=== PATIENT | male | born 1985 | race Two or more races ===

== ENCOUNTER 2018-08-15 19:10 | Inpatient (IN) | payer OTHER ==
[2018-08-15 19:23] VITALS: BMI 38.0
--- NOTE | 2018-08-15 21:54 | HP ---
CIWA Score - Admission Criteria [facility] Guidelines: Admission for Medically Managed Detox: Requires at least one of the followin. CIWA greater than 12 2. Seizures within the past 24 hours 3. Delirium tremens within the past 24 hours 4. Hallucinations within the past 24 hours 5. Acute intervention needed for co occurring medical disorder 6. Acute intervention needed for co occurring psychiatric disorder 7. Severe withdrawal that cannot be handled at a lower level of care (continued vomiting, continued diarrhea, abnormal vital signs) requiring intravenous medication and/or fluids 8. Admission ROS S - HPI Chief Complaint: SEEKING REHAB SERVICES FOR COCAINE DEPENDENCE AND ALCOHOL DEPENDENCE Allergies/Adverse Reactions: Allergies Allergy/AdvReac Type Severity Reaction Status Date / Time diphenhydramine Allergy Verified 08/15/18 21:09 [From Benadryl] shellfish derived Allergy Verified 08/15/18 21:09 History of Present Illness: 32 Y.O. MALE WITH ALCOHOL AND COCAINE DEPENDENCE HERE FOR REHAB. CLIENT STATES THAT HIS LAST DRINK WAS 3 DAYS AGO. DENIES WITHDRAWAL SX'S AT PRESENT TIME. UTOX NEG FOR DEX. STATES LAST USE 2 DAYS AGO. THIS IS HIS FIRST TIME HERE. HE IS SELF REFERRED. STATES THIS IS HIS FIRST ATTEMPT AT INPATIENT SERVICES. DENIES SIGNIFICANT CLEAN TIME. DENIES SEIZURES, AVH, SI/HI, BLACK OUTS. REPORTS HE IS HOMELESS. PMHX- ASTHMA, PSYCH- BIPOLAR MEDS- RISPERDAL HAS NOT TAKEN IN A WHILE Exam Limitations: No Limitations - Ebola screening Have you traveled outside of the country in the last 21 days: No Have you had contact with anyone from an Ebola affected area: No Have you been sick,other than usual withdrawal symptoms: No Do you have a fever: No - Review of Systems Constitutional: No Symptoms Reported EENT: reports: No Symptoms Reported Respiratory: reports: No Symptoms reported Cardiac: reports: No Symptoms Reported GI: reports: No Symptoms Reported : reports: Frequency Musculoskeletal: reports: No Symptoms Reported Integumentary: reports: No Symptoms Reported Neuro: reports: No Symptoms reported Endocrine: reports: No Symptoms Reported Hematology: reports: No Symptoms Reported Psychiatric: reports: Anxious, Depressed Other Systems: Reviewed and Negative Patient History - Patient Medical History Hx Anemia: No Hx Asthma: Yes Hx Chronic Obstructive Pulmonary Disease (COPD): No Hx Cancer: No Hx Cardiac Disorders: No Hx Congestive Heart Failure: No Hx Hypertension: No Hx Hypercholesterolemia: No Hx Pacemaker: No HX Cerebrovascular Accident: No Hx Seizures: No Hx Dementia: No Hx Diabetes: No Hx Gastrointestinal Disorders: No Hx Liver Disease: No Hx Genitourinary Disorders: No Hx Sexually Transmitted Disorders: No Hx Renal Disease (ESRD): No Hx Thyroid Disease: No Hx Human Immunodeficiency Virus (HIV): No Hx Hepatitis C: No Hx Depression: No Hx Suicide Attempt: No Hx Bipolar Disorder: Yes Hx Schizophrenia: No Other Medical History: DENIES - Patient Surgical History Past Surgical History: Yes Other Surgical History: INGUINAL HERNIA REPAIR Anesthesia Reaction: No - PPD History Previous Implant?: Yes Documented Results: Negative w/o proof Implanted On Prior [facility] Admission?: No PPD to be Administered?: Yes - Smoking Cessation Smoking history: Current every day smoker Have you smoked in the past 12 months: Yes Aproximately how many cigarettes per day: 2 Cigars Per Day: 0 Hx Chewing Tobacco Use: No Initiated information on smoking cessation: Yes 'Breaking Loose' booklet given: 08/15/18 - Substance & Tx. History Hx Alcohol Use: Yes Hx Substance Use: Yes Substance Use Type: Alcohol, Cocaine Hx Substance Use Treatment: No - Substances Abused VODKA Route: Oral Frequency: Daily Amount used: 1.5 PINT Age of first use: 20 Date of Last Use: 08/12/18 COCAINE Route: Smoking Frequency: Daily Amount used: 40 DOLLARS Age of first use: 31 Date of Last Use: 08/13/18 Family Disease History - Family Disease History Family Disease History: Other: Grandparent (HX/O DEX), Father (HX/O DEX), Mother (HX/O DEX), Brother (HX/O DEX) Admission Physical Exam S - Vital Signs Vital Signs: Vital Signs - 24 hr 08/15/18 19:20 Temperature 97.1 F L Pulse Rate 80 Respiratory 18 Rate Blood Pressure 138/73 - Physical General Appearance: Yes: Appropriately Dressed, Sweating, Anxious HEENTM: Yes: EOMI, Normal ENT Inspection, Normocephalic, Normal Voice, PONCE, Pharynx Normal Respiratory: Yes: Chest Non-Tender, Lungs Clear, Normal Breath Sounds, No Respiratory Distress, No Accessory Muscle Use Neck: Yes: No masses,lesions,Nodules, Supple, Trachea in good position Breast: Yes: Breast Exam Deferred Cardiology: Yes: Regular Rhythm, Regular Rate, S1, S2 Abdominal: Yes: Non Tender, Soft, Protuberent Genitourinary: Yes: Frequency (C/O) Back: Yes: Normal Inspection Musculoskeletal: Yes: full range of Motion, Gait Steady Extremities: Yes: Normal Capillary Refill, Normal Inspection, Normal Range of Motion, Non-Tender Neurological: Yes: Fully Oriented, Alert, Motor Strength 5/5 Integumentary: Yes: Cold (COOL), Moist Lymphatic: Yes: Within Normal Limits - Diagnostic (1) Uncomplicated alcohol dependence Current Visit: Yes Status: Chronic (2) Cocaine abuse, uncomplicated Current Visit: Yes Status: Chronic (3) Asthma Current Visit: Yes Status: Chronic Qualifiers: Asthma severity: mild Asthma persistence: intermittent Asthma complication type: unspecified Qualified Code(s): J45.20 - Mild intermittent asthma, uncomplicated (4) Nicotine dependence Current Visit: Yes Status: Chronic Qualifiers: Nicotine product type: cigarettes Substance use status: uncomplicated Qualified Code(s): F17.210 - Nicotine dependence, cigarettes, uncomplicated (5) Bipolar 1 disorder Current Visit: Yes Status: Acute (6) Homeless Current Visit: Yes Status: Acute Cleared for Admission S - Detox or Rehab Detox Regimen/Protocol: Not Applicable Claeared for Rehab Admission: Yes [facility] Breath Alcohol Content Breath Alcohol Content: 0 Urine Drug Screen - Results Drug Screen Negative: Yes Inpatient Rehab Admission - Initial Determination Are CD services needed?: Yes Free of communicable disease: Yes Not in need of hospitalization: Yes - Rehab Admission Criteria Previous failed treatment: No Poor recovery environment: Yes Comorbidities: Yes Lacks judgement: No Patient is meeting Inpatient Rehab admission criteria:: Yes
[2018-08-15] MEDS ORDERED: MENTHOL/PHENOL 1 EACH UD MM PRN (22:27)
[2018-08-15] MEDS ORDERED: LOPERAMIDE HCL 2 MG CAPSULE PO PRN (22:27)
[2018-08-15] MEDS ORDERED: ACETAMINOPHEN 325 MG TABLET (FP) PO PRN (22:27)
[2018-08-15] MEDS ORDERED: MAGNESIUM HYDROX 2400MG/30ML ORAL SUSPENSION 30 ML CUP PO PRN (22:27)
[2018-08-15] MEDS ORDERED: guaiFENesin/D-METHORPHAN HB 10 ML UNIT-DOSE CUPS PO PRN (22:27)
[2018-08-15] MEDS ORDERED: MAGNESIUM CITRATE 300 ML BOTTLE PO PRN (22:27)
[2018-08-16] MEDS: MELATONIN 5 MG TABLETS PO PRN ×2 (01:42→22:07)
[2018-08-16] MEDS: ALBUTEROL SO4 8 GM HFA INHALER IH PRN ×2 (01:45→10:41)
[2018-08-16] MEDS: hydrOXYzine PAMOATE 25 MG CAPSULE (FP) PO SCH ×3 (06:40→17:44)
--- NOTE | 2018-08-16 07:39 | PN ---
S Progress Note Note: LATE ENTRY CLIENT STATES HE IS NOT ALLERGIC TO BENADRYL ONLY THE COLORING COMPONENT HAS TAKEN THE COLORLESS BENADRYL W/O RXN VISTARIL ORDERED
[2018-08-16] MEDS: PRENATAL VITAMINS W/ FOLIC ACID TABLET (FP) PO SCH (09:45)
[2018-08-16] MEDS: NICOTINE 14 MG/24 HOURS TOPICAL PATCH TD SCH (09:46)
[2018-08-16 10:17] LABS: HEMATOCRIT 36.1 % (35.4-49); MCH 24.1 pg (25.7-33.7); MCHC 33.3 g/dl (32.0-35.9); MEAN CELL VOLUME 72.4 fl (80-96); MEAN PLT VOLUME 9.6 fl (7.5-11.1); PLATELET COUNT 216 K/MM3 (134-434); RBC 4.98 M/mm3 (4.00-5.60); RDW 17.2 % (11.9-15.9); WHITE BLOOD COUNT 9.5 K/mm3 (4.0-10.0)
[2018-08-16] MEDS: BUDESONIDE/FORMETEROL FUMARATE 160/4.5 mcg INHALER IH SCH ×2 (10:41→22:07)
[2018-08-16 10:51] LABS: ALBUMIN 3.1 g/dl (3.4-5.0); ALK PHOS 92 U/L (45-117); ANION GAP 10 MMOL/L (8-16); BILIRUBIN,TOTAL 0.2 mg/dL (0.2-1); BLOOD UREA NITROGEN 24 mg/dL (7-18); CALCIUM 7.9 mg/dL (8.5-10.1); CHLORIDE 107 mmol/L (98-107); CO2 25 mmol/L (21-32); CREATININE 1.2 mg/dL (0.55-1.3); GLUCOSE,RANDOM 91 mg/dL (74-106); POTASSIUM 4.1 mmol/L (3.5-5.1); SGOT/AST 15 U/L (15-37); SGPT/ALT 38 U/L (13-61); SODIUM 142 mmol/L (136-145); TOT PROT 6.2 g/dl (6.4-8.2)
[2018-08-16] MEDS: predniSONE 20 MG TABLET (UD) PO SCH (12:11)
[2018-08-16 13:38] LABS: URINE APPEARANCE CLEAR; URINE BILIRUBIN NEGATIVE (<2.0 mg/dL); URINE COLOR LTYELLOW; URINE GLUCOSE (UA) NEGATIVE (NEGATIVE); URINE KETONE NEGATIVE (NEGATIVE); URINE LEUK ESTERASE NEGATIVE (NEGATIVE); URINE NITRITE NEGATIVE (NEGATIVE); URINE PROTEIN NEGATIVE (NEGATIVE); URINE UROBILINOGEN NEGATIVE mg/dL (0.2-1.0)
[2018-08-16] MEDS: ALBUTEROL SO4 0.083% IH SOL 2.5 MG/3 ML VIAL.NEB. NEB PRN (17:44)
[2018-08-16] MEDS ORDERED: PT OWN MED DRAWER 7, Y5N ONE (22:06)
[2018-08-16] MEDS: THIAMINE HCL 100 MG TABLET (FP) PO SCH (22:08)
[2018-08-17] MEDS: hydrOXYzine PAMOATE 25 MG CAPSULE (FP) PO SCH ×2 (00:09→06:24)
[2018-08-17] MEDS: ALBUTEROL SO4 0.083% IH SOL 2.5 MG/3 ML VIAL.NEB. NEB PRN ×2 (06:25→18:21)
[2018-08-17] MEDS: BUDESONIDE/FORMETEROL FUMARATE 160/4.5 mcg INHALER IH SCH ×2 (10:36→21:48)
[2018-08-17] MEDS: PRENATAL VITAMINS W/ FOLIC ACID TABLET (FP) PO SCH (10:37)
[2018-08-17] MEDS: NICOTINE 14 MG/24 HOURS TOPICAL PATCH TD SCH (10:37)
[2018-08-17] MEDS: predniSONE 20 MG TABLET (UD) PO SCH (10:37)
--- NOTE | 2018-08-17 10:39 | HP ---
Psychiatrist Admission - Data Date of interview: 08/17/18 Admission source: [facility]. Self-referred Identifying data: First admission to [facility] services for this 32 y/o AA male, self -referred to [address] for rehabilitation to address alcohol + cocaine dependence co-morbid with Bipolar Disorder. 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 Claims no income. Medical History: Bronchial asthma and a history of right inguinal herniorraphy. Psychiatric History: No reported history of psychiatric hospitalizations (only a few CPEP visits). Patient states that, at age 23, he was diagnosed with Bipolar Disorder by a psychiatrist in [facility]) and placed on a low dose of risperdal (0.5 mg/hs). Was briefly tried on olanzapine (stopped due to intolerable side effects : weight gain). Has been lost to follow-up for months. No recent contact with psychiatrists. Mr Washington denies history of suicide attempts. Physical/Sexual Abuse/Trauma History: Patient denies. Additional Comment: Profile of substance abuse : Drug Screen is negative. Smoking history: Current every day smoker. Have you smoked in the past 12 months: Yes. Aproximately how many cigarettes per day: 2. Cigars Per Day: 0. Hx Chewing Tobacco Use: No. Initiated information on smoking cessation: Yes. ' Breaking Loose' booklet given: 08/15/18. - Substance & Tx. History. Hx Alcohol Use: Yes. Hx Substance Use: Yes. Substance Use Type: Alcohol, Cocaine. Hx Substance Use Treatment: No. - Substances Abused. VODKA. Route: Oral. Frequency: Daily. Amount used: 1.5 PINT. Age of first use: 20. Date of Last Use: 08/12/18. COCAINE. Route: Smoking. Frequency: Daily. Amount used: 40 DOLLARS. Age of first use: 31. Date of Last Use: 08/13/18 Vital Signs: Vital Signs - 24 hr 08/17/18 08/17/18 08/17/18 00:30 03:30 07:13 Pulse Rate 73 Respiratory 16 16 16 Rate Blood Pressure 129/75 Allergies/Adverse Reactions: Allergies Allergy/AdvReac Type Severity Reaction Status Date / Time diphenhydramine Allergy Verified 08/15/18 21:09 [From Benadryl] shellfish derived Allergy Verified 08/15/18 21:09 - Substance Abuse/Tx History Hx Alcohol Use: Yes (since age 20) Hx Substance Use: Yes Substance Use Type: Alcohol (consumes 1-2 pints of vodka daily), Cocaine (has been using cocaine since age 20 as well ; started smoking crack a year ago) Hx Substance Use Treatment: No (first call for substance abuse treatment) Mental Status Exam - Mental Status Exam Alert and Oriented to: Time, Place, Person Cognitive Function: Good Patient Appearance: Well Groomed (overweight) Mood: Hopeful, Euthymic Affect: Appropriate, Normal Range Patient Behavior: Talkative, Appropriate, Cooperative (friendly) Speech Pattern: Clear, Appropriate Voice Loudness: Normal Thought Process: Intact, Goal Oriented Thought Disorder: Not Present Hallucinations: Denies Suicidal Ideation: Denies Homicidal Ideation: Denies Insight/Judgement: Fair Sleep: Well Appetite: Good Muscle strength/Tone: Normal Gait/Station: Normal Psychiatric Findings - Problem List ([place] 1, 2,3) (1) Alcohol dependence Current Visit: Yes Status: Acute (2) Cocaine dependence Current Visit: Yes Status: Acute Comment: Toxicology is negative. Patient, however, has reported that he has not used crack for few days prior to this [facility] visit. (3) Nicotine dependence Current Visit: Yes Status: Acute Qualifiers: Nicotine product type: cigarettes Substance use status: uncomplicated Qualified Code(s): F17.210 - Nicotine dependence, cigarettes, uncomplicated (4) Bipolar disorder Current Visit: No Status: Chronic Comment: Self-report. No symptoms elicited at time of this examination. On risperdal. - Initial Treatment Plan Initial Treatment Plan: Psychoeducation. Sleep hygiene. AA meetings. Psychotherapy (supportive, group). Patient is made aware of measures currently available for relapse prevention (naltrexone, acamprosate, 12 step fellowship, psychotherapy). Motivational sessions. Risperdal 0.5 mg po hs. Resumed at patient's specific request. Side effects/benefits discussed with the patient ( specifically mentioned : galactorrhea, gynecomastia, sexual impotence, abnormal involuntary movements, cardiovascular adverse events, neuroleptic malignant syndrome, dyskinesias). Referrals for aftercare : to be discussed in Multidisciplinary rounds. Mr Washington has expressed his agreement with this plan of care. Observation.
[2018-08-17] MEDS ORDERED: PT OWN MED DRAWER 7, Y5N ONE (18:21)
[2018-08-17] MEDS: risperiDONE 0.5 MG TABLET (FP) PO SCH (21:48)
[2018-08-17] MEDS: MELATONIN 5 MG TABLETS PO PRN (21:48)
[2018-08-17] MEDS: THIAMINE HCL 100 MG TABLET (FP) PO SCH (21:50)
[2018-08-18] MEDS: BUDESONIDE/FORMETEROL FUMARATE 160/4.5 mcg INHALER IH SCH ×2 (10:17→21:52)
[2018-08-18] MEDS: PRENATAL VITAMINS W/ FOLIC ACID TABLET (FP) PO SCH (10:18)
[2018-08-18] MEDS: NICOTINE 14 MG/24 HOURS TOPICAL PATCH TD SCH (10:18)
[2018-08-18] MEDS: predniSONE 10 MG TABLET (UD) PO SCH (10:18)
[2018-08-18] MEDS: ALBUTEROL SO4 0.083% IH SOL 2.5 MG/3 ML VIAL.NEB. NEB PRN ×2 (13:55→17:39)
[2018-08-18] MEDS: THIAMINE HCL 100 MG TABLET (FP) PO SCH (21:52)
[2018-08-18] MEDS: risperiDONE 0.5 MG TABLET (FP) PO SCH (21:52)
[2018-08-18] MEDS: MELATONIN 5 MG TABLETS PO PRN (21:52)
[2018-08-19] MEDS: ALBUTEROL SO4 0.083% IH SOL 2.5 MG/3 ML VIAL.NEB. NEB PRN ×2 (07:52→17:58)
[2018-08-19] MEDS: NICOTINE 14 MG/24 HOURS TOPICAL PATCH TD SCH (10:41)
[2018-08-19] MEDS: BUDESONIDE/FORMETEROL FUMARATE 160/4.5 mcg INHALER IH SCH ×2 (10:41→22:04)
[2018-08-19] MEDS: PRENATAL VITAMINS W/ FOLIC ACID TABLET (FP) PO SCH (10:41)
[2018-08-19] MEDS: predniSONE 10 MG TABLET (UD) PO SCH (10:41)
[2018-08-19] MEDS: ALBUTEROL SO4 8 GM HFA INHALER IH PRN (17:06)
[2018-08-19] MEDS: MAG HYDROX/AL HYDROX/SIMETH 30 ML UNIT-DOSE CUP PO PRN (17:53)
[2018-08-19] MEDS: THIAMINE HCL 100 MG TABLET (FP) PO SCH (22:04)
[2018-08-19] MEDS: risperiDONE 0.5 MG TABLET (FP) PO SCH (22:04)
[2018-08-19] MEDS: MELATONIN 5 MG TABLETS PO PRN (22:06)
[2018-08-20] MEDS: ALBUTEROL SO4 8 GM HFA INHALER IH PRN ×2 (06:18→15:08)
[2018-08-20] MEDS ORDERED: PT OWN MED DRAWER 7, Y5N ONE (09:20)
[2018-08-20] MEDS ORDERED: predniSONE 5 MG TABLET (UD) PO SCH (10:00)
[2018-08-20] MEDS: PRENATAL VITAMINS W/ FOLIC ACID TABLET (FP) PO SCH (10:51)
[2018-08-20] MEDS: NICOTINE 14 MG/24 HOURS TOPICAL PATCH TD SCH (10:51)
[2018-08-20] MEDS: BUDESONIDE/FORMETEROL FUMARATE 160/4.5 mcg INHALER IH SCH ×2 (10:51→21:16)
[2018-08-20] MEDS ORDERED: COLLOIDAL OATMEAL 1 BAR EACH TP PRN (12:11)
[2018-08-20] MEDS: MINERAL OIL/PETROLAT/WATER TOPICAL CREAM 113 GM JAR TP SCH (13:00)
[2018-08-20] MEDS: THIAMINE HCL 100 MG TABLET (FP) PO SCH (21:15)
[2018-08-20] MEDS: risperiDONE 0.5 MG TABLET (FP) PO SCH (21:15)
[2018-08-20] MEDS: MELATONIN 5 MG TABLETS PO PRN (21:16)
[2018-08-20] MEDS: MAG HYDROX/AL HYDROX/SIMETH 30 ML UNIT-DOSE CUP PO PRN (22:32)
[2018-08-21] MEDS: ALBUTEROL SO4 8 GM HFA INHALER IH PRN ×2 (02:25→16:58)
[2018-08-21] MEDS ORDERED: ALBUTEROL SO4 0.083% IH SOL 2.5 MG/3 ML VIAL.NEB. NEB PRN (07:14)
[2018-08-21] MEDS: PRENATAL VITAMINS W/ FOLIC ACID TABLET (FP) PO SCH (10:15)
[2018-08-21] MEDS: NICOTINE 14 MG/24 HOURS TOPICAL PATCH TD SCH (10:16)
[2018-08-21] MEDS: BUDESONIDE/FORMETEROL FUMARATE 160/4.5 mcg INHALER IH SCH ×2 (10:16→22:00)
[2018-08-21] MEDS: MINERAL OIL/PETROLAT/WATER TOPICAL CREAM 113 GM JAR TP SCH (10:16)
[2018-08-21] MEDS: RANITIDINE HCL 150 MG TABLET (FP) PO SCH ×2 (10:17→22:00)
--- NOTE | 2018-08-21 12:52 | PN ---
[facility] Progress Note (SOAP) Subjective: c/o chest tightness , has h/o taking Prednisone , verified with pharmacy , confirmed Symbicort and Ventolin , prior rx Prednisone 07/21/2018 , prior Singulair > 12 months May 2017 ( [facility] ) states used to see pulmonary dr while in [place], has not seen one since in [place] , meant to fill rx did not go to pharmacy as he came to this facility . Pt anxious, agitated about obtaining Prednisonestates it has helped in the past with shortness of breath. . Objective: 08/21/18 12:48 wnwd no distress Resp : no accessory mm use , lungs CTA bilateral no wheezing, rales, rhonchi Assessment: 08/21/18 12:50 Asthma - poorly controlled Plan: nebulizer tx prn Prednisone 10 mg q d while at this facility , pt advised to f/up w/ PCP , discussed at length risks and benefits, verbalizes understanding of risk of OP , GIB , DM states will follow with pulmonary upon d/c from the facility . Advised pt to notify nursing for any shortness of breath Patient is in agreement w/ POC.
[2018-08-21] MEDS: predniSONE 10 MG TABLET (UD) PO SCH (14:23)
[2018-08-21] MEDS: ALBUTEROL SO4 0.083% IH SOL 2.5 MG/3 ML VIAL.NEB. NEB PRN (20:08)
[2018-08-21] MEDS ORDERED: PT OWN MED DRAWER 7, Y5N ONE ×2 (20:32→22:26)
[2018-08-21] MEDS: risperiDONE 0.5 MG TABLET (FP) PO SCH (22:00)
[2018-08-21] MEDS: THIAMINE HCL 100 MG TABLET (FP) PO SCH (22:00)
[2018-08-21] MEDS: MELATONIN 5 MG TABLETS PO PRN (22:01)
[2018-08-21] MEDS: MAG HYDROX/AL HYDROX/SIMETH 30 ML UNIT-DOSE CUP PO PRN (23:32)
[2018-08-22] MEDS: predniSONE 10 MG TABLET (UD) PO SCH (10:27)
[2018-08-22] MEDS: BUDESONIDE/FORMETEROL FUMARATE 160/4.5 mcg INHALER IH SCH ×2 (10:27→21:25)
[2018-08-22] MEDS: MINERAL OIL/PETROLAT/WATER TOPICAL CREAM 113 GM JAR TP SCH (10:27)
[2018-08-22] MEDS: RANITIDINE HCL 150 MG TABLET (FP) PO SCH ×2 (10:27→21:26)
[2018-08-22] MEDS: PRENATAL VITAMINS W/ FOLIC ACID TABLET (FP) PO SCH (10:27)
[2018-08-22] MEDS: ALBUTEROL SO4 8 GM HFA INHALER IH PRN ×2 (10:28→21:26)
[2018-08-22] MEDS: NICOTINE 14 MG/24 HOURS TOPICAL PATCH TD SCH (10:28)
[2018-08-22] MEDS ORDERED: PT OWN MED DRAWER 7, Y5N ONE ×2 (20:37→20:38)
[2018-08-22] MEDS: MAG HYDROX/AL HYDROX/SIMETH 30 ML UNIT-DOSE CUP PO PRN (21:26)
[2018-08-22] MEDS: THIAMINE HCL 100 MG TABLET (FP) PO SCH (21:26)
[2018-08-22] MEDS: risperiDONE 0.5 MG TABLET (FP) PO SCH (21:26)
[2018-08-22] MEDS: MELATONIN 5 MG TABLETS PO PRN (22:01)
[2018-08-23] MEDS: ALBUTEROL SO4 0.083% IH SOL 2.5 MG/3 ML VIAL.NEB. NEB PRN ×2 (06:32→21:27)
[2018-08-23] MEDS: BUDESONIDE/FORMETEROL FUMARATE 160/4.5 mcg INHALER IH SCH ×2 (10:12→21:23)
[2018-08-23] MEDS: RANITIDINE HCL 150 MG TABLET (FP) PO SCH ×2 (10:13→21:23)
[2018-08-23] MEDS: PRENATAL VITAMINS W/ FOLIC ACID TABLET (FP) PO SCH (10:13)
[2018-08-23] MEDS: predniSONE 10 MG TABLET (UD) PO SCH (10:13)
[2018-08-23] MEDS: NICOTINE 14 MG/24 HOURS TOPICAL PATCH TD SCH (10:13)
[2018-08-23] MEDS: MINERAL OIL/PETROLAT/WATER TOPICAL CREAM 113 GM JAR TP SCH (10:13)
[2018-08-23] MEDS ORDERED: PT OWN MED DRAWER 7, Y5N ONE (20:18)
[2018-08-23] MEDS: THIAMINE HCL 100 MG TABLET (FP) PO SCH (21:23)
[2018-08-23] MEDS: risperiDONE 0.5 MG TABLET (FP) PO SCH (21:23)
[2018-08-23] MEDS: MELATONIN 5 MG TABLETS PO PRN (21:24)
[2018-08-23] MEDS: IBUPROFEN 400 MG TABLET (FP) PO PRN (21:24)
[2018-08-23] MEDS: MAG HYDROX/AL HYDROX/SIMETH 30 ML UNIT-DOSE CUP PO PRN (21:24)
[2018-08-24] MEDS: ALBUTEROL SO4 0.083% IH SOL 2.5 MG/3 ML VIAL.NEB. NEB PRN ×2 (04:16→22:01)
[2018-08-24] MEDS: NICOTINE 14 MG/24 HOURS TOPICAL PATCH TD SCH (09:29)
[2018-08-24] MEDS: BUDESONIDE/FORMETEROL FUMARATE 160/4.5 mcg INHALER IH SCH ×2 (09:29→22:00)
[2018-08-24] MEDS: RANITIDINE HCL 150 MG TABLET (FP) PO SCH ×2 (09:30→21:59)
[2018-08-24] MEDS: PRENATAL VITAMINS W/ FOLIC ACID TABLET (FP) PO SCH (09:30)
[2018-08-24] MEDS: predniSONE 10 MG TABLET (UD) PO SCH (09:30)
[2018-08-24] MEDS: MINERAL OIL/PETROLAT/WATER TOPICAL CREAM 113 GM JAR TP SCH (09:31)
[2018-08-24] MEDS: MELATONIN 5 MG TABLETS PO PRN (21:58)
[2018-08-24] MEDS: THIAMINE HCL 100 MG TABLET (FP) PO SCH (21:58)
[2018-08-24] MEDS: IBUPROFEN 400 MG TABLET (FP) PO PRN (21:58)
[2018-08-24] MEDS: risperiDONE 0.5 MG TABLET (FP) PO SCH (21:59)
[2018-08-24] MEDS: MAG HYDROX/AL HYDROX/SIMETH 30 ML UNIT-DOSE CUP PO PRN (21:59)
[2018-08-25] MEDS: ALBUTEROL SO4 0.083% IH SOL 2.5 MG/3 ML VIAL.NEB. NEB PRN (04:48)
[2018-08-25] MEDS ORDERED: PT OWN MED DRAWER 7, Y5N ONE (09:15)
[2018-08-25] MEDS: MINERAL OIL/PETROLAT/WATER TOPICAL CREAM 113 GM JAR TP SCH (10:18)
[2018-08-25] MEDS: RANITIDINE HCL 150 MG TABLET (FP) PO SCH ×2 (10:18→22:27)
[2018-08-25] MEDS: PRENATAL VITAMINS W/ FOLIC ACID TABLET (FP) PO SCH (10:18)
[2018-08-25] MEDS: BUDESONIDE/FORMETEROL FUMARATE 160/4.5 mcg INHALER IH SCH ×2 (10:18→22:27)
[2018-08-25] MEDS: NICOTINE 14 MG/24 HOURS TOPICAL PATCH TD SCH (10:18)
[2018-08-25] MEDS: predniSONE 10 MG TABLET (UD) PO SCH (10:18)
[2018-08-25] MEDS ORDERED: COLLOIDAL OATMEAL 1 BAR EACH TP PRN (12:39)
[2018-08-25] MEDS: MAG HYDROX/AL HYDROX/SIMETH 30 ML UNIT-DOSE CUP PO PRN (18:46)
[2018-08-25] MEDS: THIAMINE HCL 100 MG TABLET (FP) PO SCH (22:26)
[2018-08-25] MEDS: IBUPROFEN 400 MG TABLET (FP) PO PRN (22:27)
[2018-08-25] MEDS: risperiDONE 0.5 MG TABLET (FP) PO SCH (22:27)
[2018-08-25] MEDS: MELATONIN 5 MG TABLETS PO PRN (22:28)
[2018-08-26] MEDS: ALBUTEROL SO4 0.083% IH SOL 2.5 MG/3 ML VIAL.NEB. NEB PRN ×2 (01:54→09:25)
[2018-08-26] MEDS: BUDESONIDE/FORMETEROL FUMARATE 160/4.5 mcg INHALER IH SCH ×2 (09:55→21:56)
[2018-08-26] MEDS: MINERAL OIL/PETROLAT/WATER TOPICAL CREAM 113 GM JAR TP SCH (09:55)
[2018-08-26] MEDS: RANITIDINE HCL 150 MG TABLET (FP) PO SCH ×2 (09:55→21:53)
[2018-08-26] MEDS: PRENATAL VITAMINS W/ FOLIC ACID TABLET (FP) PO SCH (09:55)
[2018-08-26] MEDS: predniSONE 10 MG TABLET (UD) PO SCH (09:55)
[2018-08-26] MEDS: NICOTINE 14 MG/24 HOURS TOPICAL PATCH TD SCH (09:55)
[2018-08-26] MEDS ORDERED: PT OWN MED DRAWER 7, Y5N ONE (19:23)
[2018-08-26] MEDS: IBUPROFEN 400 MG TABLET (FP) PO PRN (21:30)
[2018-08-26] MEDS: risperiDONE 0.5 MG TABLET (FP) PO SCH (21:53)
[2018-08-26] MEDS: THIAMINE HCL 100 MG TABLET (FP) PO SCH (21:53)
[2018-08-26] MEDS: MELATONIN 5 MG TABLETS PO PRN (21:55)
[2018-08-27] MEDS: ALBUTEROL SO4 0.083% IH SOL 2.5 MG/3 ML VIAL.NEB. NEB PRN ×2 (01:21→06:21)
[2018-08-27] MEDS: BUDESONIDE/FORMETEROL FUMARATE 160/4.5 mcg INHALER IH SCH ×2 (10:25→22:03)
[2018-08-27] MEDS: SODIUM CHLORIDE NASAL SPRAY 44 ML BOTTLE NS PRN (10:25)
[2018-08-27] MEDS: predniSONE 10 MG TABLET (UD) PO SCH (10:26)
[2018-08-27] MEDS: NICOTINE 14 MG/24 HOURS TOPICAL PATCH TD SCH (10:26)
[2018-08-27] MEDS: PRENATAL VITAMINS W/ FOLIC ACID TABLET (FP) PO SCH (10:26)
[2018-08-27] MEDS: RANITIDINE HCL 150 MG TABLET (FP) PO SCH ×2 (10:26→22:03)
[2018-08-27] MEDS: MINERAL OIL/PETROLAT/WATER TOPICAL CREAM 113 GM JAR TP SCH (10:27)
[2018-08-27] MEDS: ALBUTEROL SO4 8 GM HFA INHALER IH PRN ×2 (15:19→18:05)
[2018-08-27] MEDS: MELATONIN 5 MG TABLETS PO PRN (22:03)
[2018-08-27] MEDS: risperiDONE 0.5 MG TABLET (FP) PO SCH (22:03)
[2018-08-27] MEDS: THIAMINE HCL 100 MG TABLET (FP) PO SCH (22:03)
[2018-08-28] MEDS: ALBUTEROL SO4 0.083% IH SOL 2.5 MG/3 ML VIAL.NEB. NEB PRN (04:43)
[2018-08-28] MEDS: RANITIDINE HCL 150 MG TABLET (FP) PO SCH ×2 (10:07→21:32)
[2018-08-28] MEDS: BUDESONIDE/FORMETEROL FUMARATE 160/4.5 mcg INHALER IH SCH ×2 (10:07→21:34)
[2018-08-28] MEDS: PRENATAL VITAMINS W/ FOLIC ACID TABLET (FP) PO SCH (10:07)
[2018-08-28] MEDS: predniSONE 10 MG TABLET (UD) PO SCH (10:07)
[2018-08-28] MEDS: MINERAL OIL/PETROLAT/WATER TOPICAL CREAM 113 GM JAR TP SCH (10:07)
[2018-08-28] MEDS: NICOTINE 14 MG/24 HOURS TOPICAL PATCH TD SCH (10:08)
[2018-08-28] MEDS: ALBUTEROL SO4 8 GM HFA INHALER IH PRN ×2 (10:09→18:06)
[2018-08-28] MEDS ORDERED: PT OWN MED DRAWER 7, Y5N ONE ×2 (12:21→21:32)
[2018-08-28] MEDS: MELATONIN 5 MG TABLETS PO PRN (21:32)
[2018-08-28] MEDS: risperiDONE 0.5 MG TABLET (FP) PO SCH (21:32)
[2018-08-28] MEDS: THIAMINE HCL 100 MG TABLET (FP) PO SCH (21:32)
[2018-08-29] MEDS: ALBUTEROL SO4 8 GM HFA INHALER IH PRN (04:54)
[2018-08-29] MEDS: RANITIDINE HCL 150 MG TABLET (FP) PO SCH ×2 (11:02→21:42)
[2018-08-29] MEDS: predniSONE 10 MG TABLET (UD) PO SCH (11:02)
[2018-08-29] MEDS: PRENATAL VITAMINS W/ FOLIC ACID TABLET (FP) PO SCH (11:02)
[2018-08-29] MEDS: NICOTINE 14 MG/24 HOURS TOPICAL PATCH TD SCH (11:03)
[2018-08-29] MEDS: BUDESONIDE/FORMETEROL FUMARATE 160/4.5 mcg INHALER IH SCH ×2 (11:03→21:40)
[2018-08-29] MEDS: MINERAL OIL/PETROLAT/WATER TOPICAL CREAM 113 GM JAR TP SCH (11:03)
[2018-08-29] MEDS ORDERED: PT OWN MED DRAWER 7, Y5N ONE ×2 (15:57→21:03)
[2018-08-29] MEDS: risperiDONE 0.5 MG TABLET (FP) PO SCH (21:40)
[2018-08-29] MEDS: MELATONIN 5 MG TABLETS PO PRN (21:41)
[2018-08-29] MEDS: THIAMINE HCL 100 MG TABLET (FP) PO SCH (21:41)
[2018-08-30] MEDS: PRENATAL VITAMINS W/ FOLIC ACID TABLET (FP) PO SCH (10:38)
[2018-08-30] MEDS: SODIUM CHLORIDE NASAL SPRAY 44 ML BOTTLE NS PRN (10:38)
[2018-08-30] MEDS: RANITIDINE HCL 150 MG TABLET (FP) PO SCH ×2 (10:38→21:49)
[2018-08-30] MEDS: BUDESONIDE/FORMETEROL FUMARATE 160/4.5 mcg INHALER IH SCH ×2 (10:39→21:52)
[2018-08-30] MEDS: predniSONE 10 MG TABLET (UD) PO SCH (10:39)
[2018-08-30] MEDS: MINERAL OIL/PETROLAT/WATER TOPICAL CREAM 113 GM JAR TP SCH (10:40)
[2018-08-30] MEDS: NICOTINE 14 MG/24 HOURS TOPICAL PATCH TD SCH (10:40)
[2018-08-30] MEDS: ALBUTEROL SO4 8 GM HFA INHALER IH PRN (10:40)
[2018-08-30] MEDS ORDERED: PT OWN MED DRAWER 7, Y5N ONE (10:47)
[2018-08-30] MEDS: ALBUTEROL SO4 0.083% IH SOL 2.5 MG/3 ML VIAL.NEB. NEB PRN (18:02)
[2018-08-30] MEDS: THIAMINE HCL 100 MG TABLET (FP) PO SCH (21:49)
[2018-08-30] MEDS: MELATONIN 5 MG TABLETS PO PRN (21:49)
[2018-08-30] MEDS: risperiDONE 0.5 MG TABLET (FP) PO SCH (21:49)
[2018-08-31] MEDS: ALBUTEROL SO4 0.083% IH SOL 2.5 MG/3 ML VIAL.NEB. NEB PRN ×2 (04:10→10:33)
[2018-08-31] MEDS ORDERED: PT OWN MED DRAWER 7, Y5N ONE ×4 (09:05→22:13)
[2018-08-31] MEDS: PRENATAL VITAMINS W/ FOLIC ACID TABLET (FP) PO SCH (10:28)
[2018-08-31] MEDS: RANITIDINE HCL 150 MG TABLET (FP) PO SCH ×2 (10:28→22:03)
[2018-08-31] MEDS: predniSONE 10 MG TABLET (UD) PO SCH (10:28)
[2018-08-31] MEDS: SODIUM CHLORIDE NASAL SPRAY 44 ML BOTTLE NS PRN (10:29)
[2018-08-31] MEDS: NICOTINE 14 MG/24 HOURS TOPICAL PATCH TD SCH (10:29)
[2018-08-31] MEDS: MINERAL OIL/PETROLAT/WATER TOPICAL CREAM 113 GM JAR TP SCH (10:29)
[2018-08-31] MEDS: BUDESONIDE/FORMETEROL FUMARATE 160/4.5 mcg INHALER IH SCH ×2 (10:31→22:04)
[2018-08-31] MEDS: THIAMINE HCL 100 MG TABLET (FP) PO SCH (22:03)
[2018-08-31] MEDS: MELATONIN 5 MG TABLETS PO PRN (22:03)
[2018-08-31] MEDS: risperiDONE 0.5 MG TABLET (FP) PO SCH (22:03)
[2018-08-31] MEDS: MAG HYDROX/AL HYDROX/SIMETH 30 ML UNIT-DOSE CUP PO PRN (22:06)
[2018-09-01] MEDS: ALBUTEROL SO4 0.083% IH SOL 2.5 MG/3 ML VIAL.NEB. NEB PRN (05:10)
[2018-09-01] MEDS: MINERAL OIL/PETROLAT/WATER TOPICAL CREAM 113 GM JAR TP SCH (10:24)
[2018-09-01] MEDS: PRENATAL VITAMINS W/ FOLIC ACID TABLET (FP) PO SCH (10:24)
[2018-09-01] MEDS: ALBUTEROL SO4 8 GM HFA INHALER IH PRN (10:25)
[2018-09-01] MEDS: BUDESONIDE/FORMETEROL FUMARATE 160/4.5 mcg INHALER IH SCH ×2 (10:25→21:55)
[2018-09-01] MEDS: NICOTINE 14 MG/24 HOURS TOPICAL PATCH TD SCH (10:25)
[2018-09-01] MEDS: SODIUM CHLORIDE NASAL SPRAY 44 ML BOTTLE NS PRN ×2 (10:25→21:58)
[2018-09-01] MEDS: RANITIDINE HCL 150 MG TABLET (FP) PO SCH ×2 (10:25→21:56)
[2018-09-01] MEDS: predniSONE 10 MG TABLET (UD) PO SCH (10:25)
[2018-09-01] MEDS: THIAMINE HCL 100 MG TABLET (FP) PO SCH (21:56)
[2018-09-01] MEDS: risperiDONE 0.5 MG TABLET (FP) PO SCH (21:56)
[2018-09-01] MEDS: MELATONIN 5 MG TABLETS PO PRN (21:56)
[2018-09-02] MEDS: ALBUTEROL SO4 0.083% IH SOL 2.5 MG/3 ML VIAL.NEB. NEB PRN (04:26)
[2018-09-02] MEDS: PRENATAL VITAMINS W/ FOLIC ACID TABLET (FP) PO SCH (10:21)
[2018-09-02] MEDS: RANITIDINE HCL 150 MG TABLET (FP) PO SCH ×2 (10:22→21:58)
[2018-09-02] MEDS: SODIUM CHLORIDE NASAL SPRAY 44 ML BOTTLE NS PRN (10:22)
[2018-09-02] MEDS: NICOTINE 14 MG/24 HOURS TOPICAL PATCH TD SCH (10:22)
[2018-09-02] MEDS: predniSONE 10 MG TABLET (UD) PO SCH (10:22)
[2018-09-02] MEDS: BUDESONIDE/FORMETEROL FUMARATE 160/4.5 mcg INHALER IH SCH ×2 (10:22→21:59)
[2018-09-02] MEDS: MINERAL OIL/PETROLAT/WATER TOPICAL CREAM 113 GM JAR TP SCH (10:22)
[2018-09-02] MEDS: ALBUTEROL SO4 8 GM HFA INHALER IH PRN (10:23)
[2018-09-02] MEDS: THIAMINE HCL 100 MG TABLET (FP) PO SCH (21:58)
[2018-09-02] MEDS: risperiDONE 0.5 MG TABLET (FP) PO SCH (21:58)
[2018-09-02] MEDS: MELATONIN 5 MG TABLETS PO PRN (21:58)
[2018-09-03] MEDS: ALBUTEROL SO4 0.083% IH SOL 2.5 MG/3 ML VIAL.NEB. NEB PRN (04:16)
[2018-09-03] MEDS: PRENATAL VITAMINS W/ FOLIC ACID TABLET (FP) PO SCH (10:50)
[2018-09-03] MEDS: SODIUM CHLORIDE NASAL SPRAY 44 ML BOTTLE NS PRN (10:50)
[2018-09-03] MEDS: BUDESONIDE/FORMETEROL FUMARATE 160/4.5 mcg INHALER IH SCH ×2 (10:51→21:49)
[2018-09-03] MEDS: predniSONE 10 MG TABLET (UD) PO SCH (10:51)
[2018-09-03] MEDS: NICOTINE 14 MG/24 HOURS TOPICAL PATCH TD SCH (10:51)
[2018-09-03] MEDS: MINERAL OIL/PETROLAT/WATER TOPICAL CREAM 113 GM JAR TP SCH (10:51)
[2018-09-03] MEDS: RANITIDINE HCL 150 MG TABLET (FP) PO SCH ×2 (10:51→21:49)
[2018-09-03] MEDS: ALBUTEROL SO4 8 GM HFA INHALER IH PRN (10:52)
[2018-09-03] MEDS: THIAMINE HCL 100 MG TABLET (FP) PO SCH (21:47)
[2018-09-03] MEDS: risperiDONE 0.5 MG TABLET (FP) PO SCH (21:48)
[2018-09-03] MEDS: MELATONIN 5 MG TABLETS PO PRN (21:49)
[2018-09-04] MEDS: ALBUTEROL SO4 0.083% IH SOL 2.5 MG/3 ML VIAL.NEB. NEB PRN (03:19)
[2018-09-04] MEDS: SODIUM CHLORIDE NASAL SPRAY 44 ML BOTTLE NS PRN (04:39)
[2018-09-04] MEDS: predniSONE 10 MG TABLET (UD) PO SCH (10:20)
[2018-09-04] MEDS: BUDESONIDE/FORMETEROL FUMARATE 160/4.5 mcg INHALER IH SCH ×2 (10:21→22:11)
[2018-09-04] MEDS: NICOTINE 14 MG/24 HOURS TOPICAL PATCH TD SCH (10:21)
[2018-09-04] MEDS: PRENATAL VITAMINS W/ FOLIC ACID TABLET (FP) PO SCH (10:21)
[2018-09-04] MEDS: RANITIDINE HCL 150 MG TABLET (FP) PO SCH ×2 (10:21→22:11)
[2018-09-04] MEDS: MINERAL OIL/PETROLAT/WATER TOPICAL CREAM 113 GM JAR TP SCH (10:21)
[2018-09-04] MEDS: NICOTINE POLACRILEX 2 MG GUM BC PRN ×2 (10:22→22:10)
[2018-09-04] MEDS: risperiDONE 0.5 MG TABLET (FP) PO SCH (22:07)
[2018-09-04] MEDS: MELATONIN 5 MG TABLETS PO PRN (22:07)
[2018-09-04] MEDS: THIAMINE HCL 100 MG TABLET (FP) PO SCH (22:11)
[2018-09-04] MEDS: ALBUTEROL SO4 8 GM HFA INHALER IH PRN (22:11)
[2018-09-05] MEDS ORDERED: PT OWN MED DRAWER 7, Y5N ONE ×4 (09:23→20:08)
[2018-09-05] MEDS: PRENATAL VITAMINS W/ FOLIC ACID TABLET (FP) PO SCH (09:42)
[2018-09-05] MEDS: MINERAL OIL/PETROLAT/WATER TOPICAL CREAM 113 GM JAR TP SCH (09:42)
[2018-09-05] MEDS: predniSONE 10 MG TABLET (UD) PO SCH (09:42)
[2018-09-05] MEDS: RANITIDINE HCL 150 MG TABLET (FP) PO SCH ×2 (09:42→21:41)
[2018-09-05] MEDS: BUDESONIDE/FORMETEROL FUMARATE 160/4.5 mcg INHALER IH SCH ×2 (09:42→21:41)
[2018-09-05] MEDS: NICOTINE 14 MG/24 HOURS TOPICAL PATCH TD SCH (09:43)
[2018-09-05] MEDS: ALBUTEROL SO4 0.083% IH SOL 2.5 MG/3 ML VIAL.NEB. NEB PRN (09:45)
[2018-09-05] MEDS: ALBUTEROL SO4 8 GM HFA INHALER IH PRN (17:27)
[2018-09-05] MEDS: NICOTINE POLACRILEX 2 MG GUM BC PRN ×2 (17:27→21:43)
[2018-09-05] MEDS: SODIUM CHLORIDE NASAL SPRAY 44 ML BOTTLE NS PRN (17:27)
[2018-09-05] MEDS: risperiDONE 0.5 MG TABLET (FP) PO SCH (21:40)
[2018-09-05] MEDS: THIAMINE HCL 100 MG TABLET (FP) PO SCH (21:41)
[2018-09-05] MEDS: MELATONIN 5 MG TABLETS PO PRN (21:42)
[2018-09-06] MEDS: ALBUTEROL SO4 0.083% IH SOL 2.5 MG/3 ML VIAL.NEB. NEB PRN (04:59)
[2018-09-06] MEDS: BUDESONIDE/FORMETEROL FUMARATE 160/4.5 mcg INHALER IH SCH ×2 (10:43→21:31)
[2018-09-06] MEDS: RANITIDINE HCL 150 MG TABLET (FP) PO SCH ×2 (10:44→21:29)
[2018-09-06] MEDS: predniSONE 10 MG TABLET (UD) PO SCH (10:44)
[2018-09-06] MEDS: MINERAL OIL/PETROLAT/WATER TOPICAL CREAM 113 GM JAR TP SCH (10:44)
[2018-09-06] MEDS: NICOTINE 14 MG/24 HOURS TOPICAL PATCH TD SCH (10:44)
[2018-09-06] MEDS: PRENATAL VITAMINS W/ FOLIC ACID TABLET (FP) PO SCH (10:44)
[2018-09-06] MEDS: NICOTINE POLACRILEX 2 MG GUM BC PRN ×3 (10:47→21:47)
[2018-09-06] MEDS ORDERED: PT OWN MED DRAWER 7, Y5N ONE (10:49)
--- NOTE | 2018-09-06 11:05 | PN ---
[facility] Progress Note Note: PATIENT C/O URINATING A LOT AT NIGHT. PATIENT DENIES DYSURIA, URGENCY. PATIENT CURRENTLY ON PREDNISONE AND SYMBICORT FOR ASTHMA AND REPORTS H/O PRE-DIABETES. WILL ORDER FASTING GLUCOSE AND CONTINUE TO MONITOR CLINICALLY. Vital Signs Temperature 97.3 F L 09/06/18 07:03 Pulse Rate 66 09/06/18 07:03 Respiratory Rate 18 09/06/18 07:03 Blood Pressure 124/81 09/06/18 07:03 O2 Sat by Pulse Oximetry (%)
[2018-09-06] MEDS: ALBUTEROL SO4 8 GM HFA INHALER IH PRN (18:29)
[2018-09-06] MEDS: THIAMINE HCL 100 MG TABLET (FP) PO SCH (21:29)
[2018-09-06] MEDS: MELATONIN 5 MG TABLETS PO PRN (21:29)
[2018-09-06] MEDS: risperiDONE 0.5 MG TABLET (FP) PO SCH (21:29)
[2018-09-07] MEDS: ALBUTEROL SO4 8 GM HFA INHALER IH PRN ×2 (07:20→17:41)
[2018-09-07] MEDS ORDERED: PT OWN MED DRAWER 7, Y5N ONE ×3 (08:56→22:07)
[2018-09-07] MEDS: predniSONE 10 MG TABLET (UD) PO SCH (10:23)
[2018-09-07] MEDS: PRENATAL VITAMINS W/ FOLIC ACID TABLET (FP) PO SCH (10:23)
[2018-09-07] MEDS: RANITIDINE HCL 150 MG TABLET (FP) PO SCH ×2 (10:23→22:00)
[2018-09-07] MEDS: MINERAL OIL/PETROLAT/WATER TOPICAL CREAM 113 GM JAR TP SCH (10:25)
[2018-09-07] MEDS: BUDESONIDE/FORMETEROL FUMARATE 160/4.5 mcg INHALER IH SCH ×2 (10:25→21:59)
[2018-09-07] MEDS: NICOTINE 14 MG/24 HOURS TOPICAL PATCH TD SCH (10:26)
[2018-09-07] MEDS: NICOTINE POLACRILEX 2 MG GUM BC PRN ×2 (17:42→21:59)
[2018-09-07] MEDS: THIAMINE HCL 100 MG TABLET (FP) PO SCH (21:58)
[2018-09-07] MEDS: MELATONIN 5 MG TABLETS PO PRN (21:58)
[2018-09-07] MEDS: risperiDONE 0.5 MG TABLET (FP) PO SCH (21:58)
[2018-09-07] MEDS: SODIUM CHLORIDE NASAL SPRAY 44 ML BOTTLE NS PRN (22:08)
[2018-09-08] MEDS: RANITIDINE HCL 150 MG TABLET (FP) PO SCH ×2 (11:31→22:04)
[2018-09-08] MEDS: PRENATAL VITAMINS W/ FOLIC ACID TABLET (FP) PO SCH (11:31)
[2018-09-08] MEDS: predniSONE 10 MG TABLET (UD) PO SCH (11:32)
[2018-09-08] MEDS: NICOTINE 14 MG/24 HOURS TOPICAL PATCH TD SCH (11:33)
[2018-09-08] MEDS: BUDESONIDE/FORMETEROL FUMARATE 160/4.5 mcg INHALER IH SCH ×2 (11:33→22:14)
[2018-09-08] MEDS: NICOTINE POLACRILEX 2 MG GUM BC PRN ×2 (11:35→18:51)
[2018-09-08] MEDS: SODIUM CHLORIDE NASAL SPRAY 44 ML BOTTLE NS PRN (11:35)
[2018-09-08] MEDS ORDERED: PT OWN MED DRAWER 7, Y5N ONE ×3 (11:35→19:54)
[2018-09-08] MEDS: ALBUTEROL SO4 8 GM HFA INHALER IH PRN (11:36)
[2018-09-08] MEDS: MINERAL OIL/PETROLAT/WATER TOPICAL CREAM 113 GM JAR TP SCH (11:40)
[2018-09-08] MEDS: risperiDONE 0.5 MG TABLET (FP) PO SCH (22:04)
[2018-09-08] MEDS: THIAMINE HCL 100 MG TABLET (FP) PO SCH (22:04)
[2018-09-08] MEDS: MELATONIN 5 MG TABLETS PO PRN (22:05)
[2018-09-09] MEDS: ALBUTEROL SO4 8 GM HFA INHALER IH PRN ×2 (07:02→21:34)
[2018-09-09] MEDS ORDERED: PT OWN MED DRAWER 7, Y5N ONE ×3 (09:02→21:35)
[2018-09-09] MEDS: BUDESONIDE/FORMETEROL FUMARATE 160/4.5 mcg INHALER IH SCH ×2 (10:18→21:33)
[2018-09-09] MEDS: PRENATAL VITAMINS W/ FOLIC ACID TABLET (FP) PO SCH (10:18)
[2018-09-09] MEDS: NICOTINE 14 MG/24 HOURS TOPICAL PATCH TD SCH (10:19)
[2018-09-09] MEDS: predniSONE 10 MG TABLET (UD) PO SCH (10:19)
[2018-09-09] MEDS: RANITIDINE HCL 150 MG TABLET (FP) PO SCH ×2 (10:19→21:32)
[2018-09-09] MEDS: MINERAL OIL/PETROLAT/WATER TOPICAL CREAM 113 GM JAR TP SCH (10:20)
[2018-09-09] MEDS: NICOTINE POLACRILEX 2 MG GUM BC PRN (10:21)
[2018-09-09] MEDS: risperiDONE 0.5 MG TABLET (FP) PO SCH (21:32)
[2018-09-09] MEDS: THIAMINE HCL 100 MG TABLET (FP) PO SCH (21:32)
[2018-09-09] MEDS: MELATONIN 5 MG TABLETS PO PRN (21:33)
[2018-09-09] MEDS: SODIUM CHLORIDE NASAL SPRAY 44 ML BOTTLE NS PRN (21:35)
--- NOTE | 2018-09-10 09:22 | PN ---
Psychiatric Progress Note Vital Signs: Vital Signs Period Temp Pulse Resp BP Sys/C[place]ez Pulse Ox Last 24 Hr 97.5 F 61 18-20 123/84 Date of Session: 09/13/18 Chief Complaint:: Discharge Note HPI: Patient addressing Alcohol and Cocaine Dependence comorbid with Nicotine Dependence and Bipolar Disorder. ROS: Asthma was medically managed Current Medications: Active Medications Generic Name Dose Route Start Last Admin Trade Name Freq PRN Reason Stop Dose Admin Acetaminophen 650 mg 08/15/18 22:27 Tylenol - PO Q4H PRN FEVER Al Hydroxide/Mg Hydroxide 30 ml 08/15/18 22:27 08/31/18 22:06 Mylanta Oral Suspension - PO 30 ml Q6H PRN Administration DYSPEPSIA Albuterol Sulfate 2 puff 08/20/18 12:13 09/09/18 21:34 Ventolin Hfa Inhaler - IH 2 inhaler Q4H PRN Administration ASTHMA Budesonide/Formoterol Fumarate 1 puff 08/16/18 10:00 09/09/18 21:33 Symbicort 160/4.5mcg - IH Not Given BID CHINYERE Colloidal Oatmeal 1 applic 08/25/18 12:39 08/25/18 14:09 Aveeno Soap - TP 1 applic DAILY PRN Administration HYGEINE Eucalyptus/Menthol/Phenol/Sorbitol 1 each 08/15/18 22:27 Cepastat Lozenge - MM Q4H PRN SORE THROAT Guaifenesin 10 ml 08/15/18 22:27 Robitussin Dm - PO Q6H PRN COUGH Ibuprofen 400 mg 08/15/18 22:27 08/26/18 21:30 Motrin - PO 400 mg Q6H PRN Administration Pain level 4-6 Loperamide HCl 4 mg 08/15/18 22:27 Imodium - PO Q6H PRN DIARRHEA Magnesium Citrate 300 ml 08/15/18 22:27 Citroma - PO Q48H PRN CONSTIPATION Magnesium Hydroxide 30 ml 08/15/18 22:27 Milk Of Magnesia - PO DAILY PRN CONSTIPATION Melatonin 10 mg 08/27/18 14:59 09/09/18 21:33 Melatonin PO 10 mg HS PRN Administration INSOMNIA Multi-Ingredient Lotion 1 applic 08/20/18 12:15 09/09/18 10:20 Eucerin (Small Jar) - TP 1 applic DAILY CHINYERE Administration Nicotine 14 mg 08/16/18 10:00 09/09/18 10:19 Nicoderm Patch - TD Not Given DAILY CHINYERE Nicotine Polacrilex 2 mg 08/15/18 22:27 09/09/18 10:21 Nicorette Gum - BC 2 mg Q2H PRN Administration NICOTINE REPLACEMENT RX Prednisone 10 mg 08/21/18 13:00 09/09/18 10:19 Deltasone - PO 10 mg DAILY CHINYERE Administration Multivit/Folic Acid/Iron 1 tab 08/16/18 10:00 09/09/18 10:18 Vitamins ([facility]) - PO 1 tab DAILY CHINYERE Administration Ranitidine HCl 150 mg 08/21/18 10:00 09/09/18 21:32 Zantac - PO 150 mg BID CHINYERE Administration Risperidone 0.5 mg 08/17/18 22:00 09/09/18 21:32 Risperdal - PO 0.5 mg HS CHINYERE Administration Sodium Chloride 2 spray 08/26/18 13:46 09/09/18 21:35 [place] Nasal [place] - NS 2 spray BID PRN Administration NASAL CONGESTION Thiamine HCl 100 mg 08/16/18 22:00 09/09/18 21:32 Vitamin B1 - PO 100 mg HS CHINYERE Administration Current Side Effect: No Lab tests ordered: Yes Lab tests reviewed: Yes Provider note:: Patient will complete this program on 09/14/18. He has met his treatment goals and will continue to address his issues in terminal manager residential treatment at [facility] at [address] [place] [address]. Told entry writer that from his participation in this program, he has learned the tools that would enable him to stat clean. He responded well to Risperdal 0.5 mg po HS. Script for 30 days supply of that medication is electronicaly transmitted to [facility] at [address] [place] [address]. He is stable for discharge today Total face to face time:: 35 Mental Status Exam - Mental Status Exam Alert and Oriented to: Time, Place, Person Cognitive Function: Fair Patient Appearance: Well Groomed Mood: Hopeful, Irritable Affect: Appropriate Patient Behavior: Cooperative Speech Pattern: Clear Voice Loudness: Normal Thought Process: Intact, Goal Oriented Thought Disorder: Not Present Hallucinations: Denies Suicidal Ideation: Denies Insight/Judgement: Fair Sleep: Fair Appetite: Good Muscle strength/Tone: Normal Gait/Station: Normal Psychiatric Treatment Plan - Problem List (1) Alcohol dependence Current Visit: Yes (2) Cocaine dependence Current Visit: Yes Comment: Toxicology is negative. Patient, however, has reported that he has not used crack for few days prior to this [facility] visit. (3) Nicotine dependence Current Visit: Yes Qualifiers: Nicotine product type: cigarettes Substance use status: uncomplicated Qualified Code(s): F17.210 - Nicotine dependence, cigarettes, uncomplicated (4) Bipolar 1 disorder Current Visit: Yes (5) Asthma Current Visit: Yes Qualifiers: Asthma severity: mild Asthma persistence: intermittent Asthma complication type: unspecified Qualified Code(s): J45.20 - Mild intermittent asthma, uncomplicated Initial treatment plan: Patient is discharged today and referred to [facility] for terminal manager residential treatment
[2018-09-10] MEDS ORDERED: PT OWN MED DRAWER 7, Y5N ONE ×4 (09:33→22:08)
[2018-09-10] MEDS: PRENATAL VITAMINS W/ FOLIC ACID TABLET (FP) PO SCH (10:30)
[2018-09-10] MEDS: predniSONE 10 MG TABLET (UD) PO SCH (10:30)
[2018-09-10] MEDS: MINERAL OIL/PETROLAT/WATER TOPICAL CREAM 113 GM JAR TP SCH (10:30)
[2018-09-10] MEDS: BUDESONIDE/FORMETEROL FUMARATE 160/4.5 mcg INHALER IH SCH ×2 (10:30→22:02)
[2018-09-10] MEDS: RANITIDINE HCL 150 MG TABLET (FP) PO SCH ×2 (10:30→21:34)
[2018-09-10] MEDS: SODIUM CHLORIDE NASAL SPRAY 44 ML BOTTLE NS PRN ×2 (10:33→21:37)
[2018-09-10] MEDS: ALBUTEROL SO4 8 GM HFA INHALER IH PRN (10:33)
[2018-09-10] MEDS: NICOTINE 14 MG/24 HOURS TOPICAL PATCH TD SCH (10:57)
[2018-09-10] MEDS: risperiDONE 0.5 MG TABLET (FP) PO SCH (21:34)
[2018-09-10] MEDS: THIAMINE HCL 100 MG TABLET (FP) PO SCH (21:34)
[2018-09-10] MEDS: MELATONIN 5 MG TABLETS PO PRN (21:34)
[2018-09-10] MEDS: NICOTINE POLACRILEX 2 MG GUM BC PRN (21:37)
[2018-09-11] MEDS: ALBUTEROL SO4 8 GM HFA INHALER IH PRN ×3 (02:01→17:56)
[2018-09-11] MEDS: BUDESONIDE/FORMETEROL FUMARATE 160/4.5 mcg INHALER IH SCH ×2 (10:00→21:41)
[2018-09-11] MEDS: PRENATAL VITAMINS W/ FOLIC ACID TABLET (FP) PO SCH (10:00)
[2018-09-11] MEDS: RANITIDINE HCL 150 MG TABLET (FP) PO SCH ×2 (10:00→21:39)
[2018-09-11] MEDS: MINERAL OIL/PETROLAT/WATER TOPICAL CREAM 113 GM JAR TP SCH (10:00)
[2018-09-11] MEDS: NICOTINE 14 MG/24 HOURS TOPICAL PATCH TD SCH (10:00)
[2018-09-11] MEDS: predniSONE 10 MG TABLET (UD) PO SCH (10:00)
[2018-09-11] MEDS: NICOTINE POLACRILEX 2 MG GUM BC PRN ×3 (10:02→17:55)
[2018-09-11] MEDS: THIAMINE HCL 100 MG TABLET (FP) PO SCH (21:39)
[2018-09-11] MEDS: MELATONIN 5 MG TABLETS PO PRN (21:39)
[2018-09-11] MEDS: risperiDONE 0.5 MG TABLET (FP) PO SCH (21:39)
[2018-09-11] MEDS ORDERED: PT OWN MED DRAWER 7, Y5N ONE (21:40)
[2018-09-11] MEDS: SODIUM CHLORIDE NASAL SPRAY 44 ML BOTTLE NS PRN (21:40)
[2018-09-12] MEDS: predniSONE 10 MG TABLET (UD) PO SCH (10:25)
[2018-09-12] MEDS: PRENATAL VITAMINS W/ FOLIC ACID TABLET (FP) PO SCH (10:25)
[2018-09-12] MEDS: RANITIDINE HCL 150 MG TABLET (FP) PO SCH ×2 (10:25→21:32)
[2018-09-12] MEDS: MINERAL OIL/PETROLAT/WATER TOPICAL CREAM 113 GM JAR TP SCH (10:26)
[2018-09-12] MEDS: NICOTINE 14 MG/24 HOURS TOPICAL PATCH TD SCH (10:26)
[2018-09-12] MEDS: BUDESONIDE/FORMETEROL FUMARATE 160/4.5 mcg INHALER IH SCH ×2 (10:26→21:33)
[2018-09-12] MEDS: SODIUM CHLORIDE NASAL SPRAY 44 ML BOTTLE NS PRN ×2 (10:26→21:33)
[2018-09-12] MEDS: NICOTINE POLACRILEX 2 MG GUM BC PRN ×3 (10:26→17:41)
[2018-09-12] MEDS ORDERED: PT OWN MED DRAWER 7, Y5N ONE ×2 (10:39→19:40)
[2018-09-12] MEDS: ALBUTEROL SO4 8 GM HFA INHALER IH PRN ×2 (17:42→21:32)
[2018-09-12] MEDS: risperiDONE 0.5 MG TABLET (FP) PO SCH (21:32)
[2018-09-12] MEDS: MELATONIN 5 MG TABLETS PO PRN (21:32)
[2018-09-12] MEDS: THIAMINE HCL 100 MG TABLET (FP) PO SCH (21:32)
[2018-09-13] MEDS: NICOTINE POLACRILEX 2 MG GUM BC PRN (07:11)
[2018-09-13 07:50] VITALS: BP 126/86; PULSE 67; TEMP 97.3
[2018-09-13] MEDS ORDERED: PT OWN MED DRAWER 7, Y5N ONE (07:57)
--- NOTE | 2018-09-13 08:25 | PN ---
S Progress Note Note: REHAB COMPLETED. ALERT O X 3. PT HAS BEEN REFERRED TO [facility] FOR AFTERCARE. PT REPORTS HE HAS A PCP, DR. ALTHEA CHANG ON [address] [place] [address]. Vital Signs 09/13/18 09/13/18 03:30 07:49 Temperature 97.3 F L Pulse Rate 67 Respiratory 16 18 Rate Blood Pressure 126/86 NAD
== END 2018-09-13 08:50 | disposition home or self-care (01) | DRG 772 ==
LOC: YASAS 19:10 → Y3W 23:16
PROVIDERS: ADMIT Psychiatry & Neurology Psychiatry; ATTEND Psychiatry & Neurology Psychiatry
PROC: HZ40ZZZ Group Counseling for Substance Abuse Treatment, Cognitive (ICD-10-PCS; principal; 2018-08-15)
DX: F10.20 Alcohol dependence, uncomplicated (principal); F14.20 Cocaine dependence, uncomplicated; F17.210 Nicotine dependence, cigarettes, uncomplicated; F31.89 Other bipolar disorder; J45.20 Mild intermittent asthma, uncomplicated; R35.1 Nocturia; Z91.013 Allergy to seafood; Z59.0 Homelessness
CPT/HCPCS: 36415; 80053; 81003; 82947; 85027; 86593; 94640